=== PATIENT | female | born 1985 | race Caucasian/White ===

== ENCOUNTER → 2017-09-18 11:03 | Outpatient (CLI) | payer OTHER, SELFPAY ==
[2017-09-18 11:54] LABS: Hematocrit 33.4 % (37-47); Mean Corp Hgb Conc 32.9 g/gl (32-36); Mean Corpuscular Hgb 29.2 pg (27.0-32.0); Mean Corpuscular Volume 88.6 fL (81-99); Mean Platelet Vol. 10.7 fl (6.2-12.0); Platelet Count 154 K/mm3 (150-450); RBC Distribution Width CV 13.5 % (11.6-14.6); RBC Distribution Width SD 42.8 fl (35.1-43.9); Red Blood Count 3.77 M/mm3 (4.2-5.4); White Blood Count 6.8 K/mm3 (4.4-11.0)
[2017-09-18 11:56] LABS: Glucose Challenge Gest 1H 50g 89 mg/dL (70-140)
[2017-09-18 11:58] LABS: Scan Indicated on CBC? Y/N NO
== END ==
PROVIDERS: Visit Provider Obstetrics & Gynecology
DX: Z34.83 Encounter for supervision of other normal pregnancy, third trimester (principal)
CPT/HCPCS: 36415; 82950; 85027

== ENCOUNTER → 2017-11-12 16:40 | Outpatient (CLI) | payer OTHER, SELFPAY ==
[2017-11-12 18:25] LABS: Group B Strep DNA By PCR Negative (Negative); Internal Control PASS; Probe Check PASS; Specimen Processing Control PASS
== END ==
PROVIDERS: Visit Provider Obstetrics & Gynecology
DX: Z36.85 Encounter for antenatal screening for Streptococcus B (principal)
CPT/HCPCS: 87077; 87081; 87186; 87653

== ENCOUNTER 2017-12-04 05:30 | Inpatient (IN) | payer SELFPAY, OTHER ==
[2017-12-04] VITALS (19 sets, daily range): BP systolic 90–104; BP diastolic 43–64; PULSE 62–89; RESP 11–18; TEMP 36–37.1; O2SAT 82–100; BMI 27.5
--- NOTE | 2017-12-04 | FALS_PTH ---
PATIENT: GISELLE PEPPER LOC: [facility] U#:[id number] AGE/SX: 32/F ROOM: WP007 RE12/04/[address]: Dr. Gabriela Sanchez MD : [id number] BED: 1 DIS: 12/06/2017 SPEC #: [id number] RECD: 12/04/17 10:36 STATUS: LUCAS REMargaret #: [id number] CASEY: 12/04/17 00:[address]: Gabriela Sanchez DEPT: SURGICAL PATHOLOGY RECD BY: Yehuda Ngo ENTERED: 12/04/17 10:37 SP TYPE: FALL TUBES OTHR DR: No Primary Care Phys Tissues: Fallopian tube Procedures: Surgery Specimen Level II HEADER OPERATION: Bilateral partial salpingectomy, tubal ligation PRE-OP DIAGNOSIS: Sterilization request TISSUE SUBMITTED: Fallopian tubes MICROSCOPIC DIAGNOSIS Bilateral fallopian tubes, partial salpingectomy: Completely transected segments of bilateral fallopian tubes, no pathologic diagnosis. SJ:anitha 12/05/17 MICROSCOPIC DESCRIPTION Slides are reviewed. GROSS DESCRIPTION Received is one container labeled with the patient's name and designated bilateral fallopian tubes (right tube stitch). The specimen consists of two tubular pieces of beyer soft tissue with the right tube identified by a stitch and it is inked black and measures 2 cm in length and 0.8 cm in diameter. The left tube measures 1.4 cm in length and 0.7 cm in diameter. The entire specimen is submitted in one cassette. Both pieces will be sectioned at the time of embedding. / MARIE:anitha 12/04/17 TC:4 CPT: 59389 x2
[2017-12-04] MEDS: Lactated Ringers 1,000 ML 999 ML IV (06:05)
[2017-12-04 06:44] LABS: Hematocrit 32.5 % (37-47); Hemoglobin 10.8 g/dl (12.0-15.0); Mean Corp Hgb Conc 33.2 g/gl (32-36); Mean Corpuscular Hgb 28.4 pg (27.0-32.0); Mean Corpuscular Volume 85.5 fL (81-99); Mean Platelet Vol. 11.3 fl (6.2-12.0); Platelet Count 143 K/mm3 (150-450); RBC Distribution Width CV 13.1 % (11.6-14.6); RBC Distribution Width SD 39.6 fl (35.1-43.9); Scan Indicated on CBC? Y/N NO; White Blood Count 5.7 K/mm3 (4.4-11.0)
[2017-12-04 06:51] LABS: Partial Thromboplast Time 28.5 Seconds (24.1-36.2)
[2017-12-04] MEDS: Sodium Citrate/Citric Acid 30 ML UDC PO (06:57)
[2017-12-04] MEDS: Lactated Ringers 1,000 ML 150 ML IV (07:03)
--- NOTE | 2017-12-04 07:05 | PCM.DCCSEC ---
Discharge Diet: No Restrictions Discharge Activity: May not drive while taking narcotic pain medications., May Shower, May Take a Tub Bath Return to work on:: 01/19/18 May resume sexual activity in: 4-6 weeks Lifting Restrictions: 20 pounds Additional Activity Instructions:: Nothing in the vagina for 4-6 weeks. You may return to work/school in 6 weeks. Change Dressing in (Days):: 4 Remove Dressing in (days):: 4 Cleanse incision/area with: Soap & Water, Keep Dressing Clean & Dry Additional Instructions: If you experience any of the following, contact your healthcare provider. Bleeding that soaks a pad every hour for 2 hours Fever 100.4 or higher Unrelieved incision or abdominal pain Swelling, redness, discharge or bleeding from your incision Problems urinating (including inability to urinate or burning while urinating). Visual changes Severe headache Flu-like symptoms Pain or redness in one of both of your breasts Pain, warmth, tenderness or swelling in your legs, especially the calf area Frequent nausea and vomiting Symptoms of depression or anxiety If you experience any of the following, call 911 or go to the nearest Emergency Room. Chest pain Problems breathing Seizure activity Partial or complete paralysis of a body part, slurred speech, weakness or drooping of the face, or a sudden inability to walk or hold your balance Allergies/Adverse Reactions: Allergies No Known Allergies Allergy (Verified 12/04/17 05:50) Medications to take at Discharge Vits [Prenatabs FA] 1 tablet PO DAILY 07/26/15 Docusate Sodium [Colace] 100 mg PO BID PRN PRN #30 cap 12/04/17 Naproxen [Naprosyn] 250 - 500 mg PO TID PRN #30 tab 12/04/17 Oxycodone [Oxyir] 5 - 10 mg PO Q6H PRN PRN 7 Days #28 tablet 12/04/17 The following prescriptions were given: Oxycodone [Oxyir] 5 - 10 mg PO Q6H PRN PRN 7 Days #28 tablet PRN Reason: Mod-Severe Pain () Docusate Sodium [Colace] 100 mg PO BID PRN PRN #30 cap PRN Reason: Constipation Naproxen [Naprosyn] 250 - 500 mg PO TID PRN #30 tab PRN Reason: Mild-Mod Pain (-10/23) Follow-Up: Call to make an appointment with your doctor for an incision check in 1-2 weeks. You will also need a 6 week post- follow up appointment. Please Follow Up With: Jignesh Zabala MD - [phone] When: Call to make an appointment for an incision check in 2 weeks. Primary Care Physician: Care Physician,No Primary [Primary Care Provider] - Proposed Discharge Date: 12/06/17
--- NOTE | 2017-12-04 07:08 | DCINST_ITS ---
Discharge Diet: No Restrictions Discharge Activity: May not drive while taking narcotic pain medications., May Shower, May Take a Tub Bath Return to work on:: 01/19/18 May resume sexual activity in: 4-6 weeks Lifting Restrictions: 20 pounds Additional Activity Instructions:: Nothing in the vagina for 4-6 weeks. You may return to work/school in 6 weeks. Change Dressing in (Days):: 4 Remove Dressing in (days):: 4 Cleanse incision/area with: Soap & Water, Keep Dressing Clean & Dry Additional Instructions: If you experience any of the following, contact your healthcare provider. * Bleeding that soaks a pad every hour for 2 hours * Fever 100.4 or higher * Unrelieved incision or abdominal pain * Swelling, redness, discharge or bleeding from your incision * Problems urinating (including inability to urinate or burning while urinating) . * Visual changes * Severe headache * Flu-like symptoms * Pain or redness in one of both of your breasts * Pain, warmth, tenderness or swelling in your legs, especially the calf area * Frequent nausea and vomiting * Symptoms of depression or anxiety If you experience any of the following, call 911 or go to the nearest Emergency Room. * Chest pain * Problems breathing * Seizure activity * Partial or complete paralysis of a body part, slurred speech, weakness or drooping of the face, or a sudden inability to walk or hold your balance Allergies/Adverse Reactions: Allergies No Known Allergies Allergy (Verified 12/04/17 05:50) Medications to take at Discharge Vits [Prenatabs FA] 1 tablet PO DAILY 07/26/15 Docusate Sodium [Colace] 100 mg PO BID PRN PRN #30 cap 12/04/17 Naproxen [Naprosyn] 250 - 500 mg PO TID PRN #30 tab 12/04/17 Oxycodone [Oxyir] 5 - 10 mg PO Q6H PRN PRN 7 Days #28 tablet 12/04/17 The following prescriptions were given: Oxycodone [Oxyir] 5 - 10 mg PO Q6H PRN PRN 7 Days #28 tablet PRN Reason: Mod-Severe Pain () Docusate Sodium [Colace] 100 mg PO BID PRN PRN #30 cap PRN Reason: Constipation Naproxen [Naprosyn] 250 - 500 mg PO TID PRN #30 tab PRN Reason: Mild-Mod Pain (-10/23) Follow-Up: Call to make an appointment with your doctor for an incision check in 1-2 weeks. You will also need a 6 week post- follow up appointment. Please Follow Up With: Jignesh Zabala MD - [phone] When: Call to make an appointment for an incision check in 2 weeks. Primary Care Physician: Care Physician,No Primary [Primary Care Provider] - Proposed Discharge Date: 12/06/17
[2017-12-04] MEDS: Cefazolin 2 GM in 0.9% Normal Saline 100 ML IV (07:36)
[2017-12-04] MEDS: Oxytocin 30 units/NS 500 ml 30 UNITS/500 ML IV.SOLN 167 UNITS IV (07:49)
--- NOTE | 2017-12-04 08:23 | PCM.OP.BLANK ---
Operative Report Date of Procedure: 12/04/17 PROCEDURE: Repeat C section. Bilateral partial salpingectomy Preoperative diagnosis: 39 2/7 wk EGA Prior C section deliveries, planned repeat C section Sterilization request. Postop diagnosis: 39 2/7 wk EGA Prior C section deliveries, planned repeat C section Sterilization request. Anesthesia: Spinal Dr. Ghotra Surgeon: Gabriela Sanchez MD Church Secretary: LUCRECIA Candelario EBL 800 cc Complications: Incidental extension of skin incision occurred to patient's left side, with lateral stretch of peritoneum. Drains: Espinoza draining clear yellow Fluids: replacement LR Findings: At amniotomy, clear fluid was noted. Schmitt viable female in vertex presentation. Apgars 4/8/9, Clinical Study Manager called to delivery to attend. See resuscitation record. There were normal appearing fallopian tubes and ovaries bilaterally, and a normal appearing uterus with filmy adhesions of omentum and bladder to uterus, lower uterine segment. PATH: Bilateral fallopian tube segments, and routine cord blood gases sent to [facility] Pathology lab Narrative account: After the risks, benefits and alternatives of the procedure were reviewed with the patient, informed consent was obtained. The patient was taken to the Operating room with an IV running, and placed in a seated position on the operating table for placement of the spinal. Once the spinal had been administered, she was briefly frog-legged for Espinoza catheter placement, and then repositioned to dorsal supine position , and prepped and draped in the usual sterile fashion. Amanda's blood pressure was low and medications were given for this, and L tilt employed with resolution of symptoms (especially after delivery of ) Once the spinal was deemed adequate, a Pfannenstiel skin incision was created using the knife. The incision was carried down to the rectus fascia using the knife. The fascia was nicked in the midline. The fascial incision was extended bilaterally using curved Power scissors. The superior aspect of the fascial incision was grasped with Sanket clamps and tented up and the underlying rectus abdominal muscles were dissected free using Bovie cautery, blunt and sharp dissection. In a similar manner, the inferior aspect of the facial incision was grasped with Sanket clamps tented up and the underlying rectus abdominal muscles were dissected free. The rectus abdominis muscles were in the midline and the peritoneum was identified and entered by blunt dissection high in the incision. Using the shirt line operator's fingertips to guide dissection and Metzenbaum scissors the peritoneal incision was extended superiorly and then inferiorly The peritoneum was stretched laterally (and at this point the L rectus body tore and the skin incision extended towards the L hip). A bladder blade was inserted. The bladder was pushed down off the lower uterine segment as adhesions were taken down by Metzenbaum scissors. The uterine incision was then created using Metzenbaum scissors. The operators fingertips were used to extend the uterine incision by blunt dissection in a caudad- cephalad orientation . Clear fluid was noted at amniotomy. The vertex was then delivered atraumatically through the incision. The left shoulder was reduced and the baby was then delivered easily onto the abdomen. The OP and nares were bulb suctioned on the abdomen. The baby had good tone and was initially grasping at the suction tubing. No spontaneous cry was noted. The cord was clamped x two and cut. And the was handed off to the nurse awaiting delivery after briefly showing her to her parents. Clinical Study Manager was called to delivery then to assist with transitioning. The placenta was then delivered. The uterus was exteriorized and cleared of clots and debris . The uterine incision was repaired with 1 Vicryl in a running locked fashion. A second imbricating layer was then placed, using 1 Monocryl in running nonlocked fashion. Bovie cautery was used to treat any bleeding areas . Several horizontal mattress stitches were placed along the incision for hemostasis . Excellent hemostasis was noted. Attention was then turned to the bilateral partial salpingectomy The R fallopian tube was grasped as a relatively avascular midportion with a William clamp and tented up. A window was created in the mesosalpinx and the distal and proximal ends of the fallopian tube a the peritoneal window were free tied. A second free tie of 2-0 catgut was placed inferior o both other ligatures and a segment of the R fallopian tube was excised and set aside. T he fallopian tube stumps were Bovie cauterized for hemostasis . Excellent hemostasis was noted. I The partial salpingectomy was then performed in a similar manner the L fallopian tube. Excellent hemostasis was noted. At this point the uterus was returned to the abdominal cavity. The gutters were cleared of clots and debris and the incision at the uterus was inspected. Adequate hemostasis was noted. Dali was applied to the incision for continued hemostasis. The peritoneal edges and rectus abdominis muscles were reapproximated in the midline with vertical mattress stitches and figure of eight stitches of 1 Vicryl . Excellent hemostasis was noted at the subfascial space. The fascia was then closed in a running nonlocked fashion with a Stratofix suture. The Subcutaneous fatty tissue was Bovie cauterized as needed for hemostasis. Dali was liberally dusted at this layer to prevent seroma formation. This layer was then reapproximated with a single layer of running 3-0 Vicryl to eliminate space. The skin edges were closed in a Subcuticular stitch of 4-0 Monocryl. The incision was cleansed. Cavilon, Steristrips, and a telfa and tape dressing were then applied. The patient was then transferred to the recovery room bed in stable condition after tolerating the procedure well. Sponge, lap, needle and instrument counts correct times two. Medications given preop and intraoperatively included: Ancef 3 gm given food preparation kitchen aide to the operating room. The patient also received Pitocin given IV after cord clamp, and Toradol 30 mg IV times one, and Methergine 0.2 mg IM in R thigh as a prophylactic measure given macrosomia and initial uterine atony without hemorrhage. For a complete listing of medications given preop and intraoperatively, please see the anesthesia record.
--- NOTE | 2017-12-04 08:38 | OP.PCM_ITS ---
Operative Report Date of Procedure: 12/04/17 PROCEDURE: Repeat C section. Bilateral partial salpingectomy Preoperative diagnosis: 39 2/7 wk EGA Prior C section deliveries, planned repeat C section Sterilization request. Postop diagnosis: 39 2/7 wk EGA Prior C section deliveries, planned repeat C section Sterilization request. Anesthesia: Spinal Dr. Ghotra Surgeon: Gabriela Sanchez MD Medical Reviewer: LUCRECIA Candelario EBL 800 cc Complications: Incidental extension of skin incision occurred to patient's left side, with lateral stretch of peritoneum. Drains: Espinoza draining clear yellow Fluids: replacement LR Findings: At amniotomy, clear fluid was noted. Schmitt viable female in vertex presentation. Apgars 4/8/9, Rose Grader called to delivery to attend. See resuscitation record. There were normal appearing fallopian tubes and ovaries bilaterally, and a normal appearing uterus with filmy adhesions of omentum and bladder to uterus, lower uterine segment. PATH: Bilateral fallopian tube segments, and routine cord blood gases sent to [facility] Pathology lab Narrative account: After the risks, benefits and alternatives of the procedure were reviewed with the patient, informed consent was obtained. The patient was taken to the Operating room with an IV running, and placed in a seated position on the operating table for placement of the spinal. Once the spinal had been administered, she was briefly frog-legged for Espinoza catheter placement, and then repositioned to dorsal supine position , and prepped and draped in the usual sterile fashion. Amanda's blood pressure was low and medications were given for this, and L tilt employed with resolution of symptoms (especially after delivery of ) Once the spinal was deemed adequate, a Pfannenstiel skin incision was created using the knife. The incision was carried down to the rectus fascia using the knife. The fascia was nicked in the midline. The fascial incision was extended bilaterally using curved Power scissors. The superior aspect of the fascial incision was grasped with Sanket clamps and tented up and the underlying rectus abdominal muscles were dissected free using Bovie cautery, blunt and sharp dissection. In a similar manner, the inferior aspect of the facial incision was grasped with Sanket clamps tented up and the underlying rectus abdominal muscles were dissected free. The rectus abdominis muscles were in the midline and the peritoneum was identified and entered by blunt dissection high in the incision. Using the canteen operator's fingertips to guide dissection and Metzenbaum scissors the peritoneal incision was extended superiorly and then inferiorly The peritoneum was stretched laterally (and at this point the L rectus body tore and the skin incision extended towards the L hip). A bladder blade was inserted. The bladder was pushed down off the lower uterine segment as adhesions were taken down by Metzenbaum scissors. The uterine incision was then created using Metzenbaum scissors. The operators fingertips were used to extend the uterine incision by blunt dissection in a caudad- cephalad orientation . Clear fluid was noted at amniotomy. The vertex was then delivered atraumatically through the incision. The left shoulder was reduced and the baby was then delivered easily onto the abdomen. The OP and nares were bulb suctioned on the abdomen. The baby had good tone and was initially grasping at the suction tubing. No spontaneous cry was noted. The cord was clamped x two and cut. And the was handed off to the nurse awaiting delivery after briefly showing her to her parents. Rose Grader was called to delivery then to assist with transitioning. The placenta was then delivered. The uterus was exteriorized and cleared of clots and debris . The uterine incision was repaired with 1 Vicryl in a running locked fashion. A second imbricating layer was then placed, using 1 Monocryl in running nonlocked fashion. Bovie cautery was used to treat any bleeding areas . Several horizontal mattress stitches were placed along the incision for hemostasis . Excellent hemostasis was noted. Attention was then turned to the bilateral partial salpingectomy The R fallopian tube was grasped as a relatively avascular midportion with a William clamp and tented up. A window was created in the mesosalpinx and the distal and proximal ends of the fallopian tube a the peritoneal window were free tied. A second free tie of 2- 0 catgut was placed inferior o both other ligatures and a segment of the R fallopian tube was excised and set aside. T he fallopian tube stumps were Bovie cauterized for hemostasis . Excellent hemostasis was noted. I The partial salpingectomy was then performed in a similar manner the L fallopian tube. Excellent hemostasis was noted. At this point the uterus was returned to the abdominal cavity. The gutters were cleared of clots and debris and the incision at the uterus was inspected. Adequate hemostasis was noted. Dali was applied to the incision for continued hemostasis. The peritoneal edges and rectus abdominis muscles were reapproximated in the midline with vertical mattress stitches and figure of eight stitches of 1 Vicryl . Excellent hemostasis was noted at the subfascial space. The fascia was then closed in a running nonlocked fashion with a Stratofix suture. The Subcutaneous fatty tissue was Bovie cauterized as needed for hemostasis. Dali was liberally dusted at this layer to prevent seroma formation. This layer was then reapproximated with a single layer of running 3-0 Vicryl to eliminate space. The skin edges were closed in a Subcuticular stitch of 4- 0 Monocryl. The incision was cleansed. Cavilon, Steristrips, and a telfa and tape dressing were then applied. The patient was then transferred to the recovery room bed in stable condition after tolerating the procedure well. Sponge, lap, needle and instrument counts correct times two. Medications given preop and intraoperatively included: Ancef 3 gm given ad operations intern to the operating room. The patient also received Pitocin given IV after cord clamp, and Toradol 30 mg IV times one, and Methergine 0.2 mg IM in R thigh as a prophylactic measure given macrosomia and initial uterine atony without hemorrhage. For a complete listing of medications given preop and intraoperatively, please see the anesthesia record.
[2017-12-04] MEDS: Lactated Ringers 1,000 ML 100 ML IV ×2 (09:03→18:00)
--- NOTE | 2017-12-04 09:36 | NURSING ---
Warm blankets applied. tmp in room increased
[2017-12-04 09:41] LABS: Pathology Specimen OB SEE PATHOLOGY REPORT
[2017-12-04] MEDS: Ondansetron 4 MG/2 ML Vial IV (11:12)
[2017-12-04] MEDS: proMETHazine 25 MG/ML Syringe 12.5 MG IV (11:40)
[2017-12-04] MEDS: Ketorolac 30 MG/ML Syringe IV ×2 (14:05→20:18)
[2017-12-04] MEDS: Nalbuphine 10 MG/ML Ampul 5 MG IV (14:06)
--- NOTE | 2017-12-04 17:48 | NURSING ---
late entry- 1112- complaining of nausea and had small emesis. Zofran given.
--- NOTE | 2017-12-04 17:49 | NURSING ---
late entry-1140- continued to vomit x2 after Zofran. Phenergan given
[2017-12-05] VITALS (8 sets, daily range): BP systolic 84–91; BP diastolic 30–58; PULSE 70–90; RESP 16–20; TEMP 36.4–36.8; O2SAT 95–98
[2017-12-05] MEDS: Nalbuphine 10 MG/ML Ampul 5 MG IV ×2 (00:12→00:19)
[2017-12-05] MEDS: Ketorolac 30 MG/ML Syringe IV ×4 (02:38→20:07)
[2017-12-05 04:34] LABS: Hematocrit 27.2 % (37-47); Hemoglobin 8.8 g/dl (12.0-15.0); Mean Corp Hgb Conc 32.4 g/gl (32-36); Mean Corpuscular Hgb 27.7 pg (27.0-32.0); Mean Corpuscular Volume 85.5 fL (81-99); Mean Platelet Vol. 10.5 fl (6.2-12.0); Platelet Count 113 K/mm3 (150-450); RBC Distribution Width CV 13.5 % (11.6-14.6); RBC Distribution Width SD 42.2 fl (35.1-43.9); Red Blood Count 3.18 M/mm3 (4.2-5.4); Scan Indicated on CBC? Y/N NO
--- NOTE | 2017-12-05 07:44 | PCM.PN.OB ---
Subjective: POD#1 Repeat C/S and BPS Doing well. IV to S/L plans to bottle feed. Asking about formulas and normally uses [employer] brand. No concerns otherwise. N/V postop and this has passed. - Physical Exam General: Alert, Oriented x3, Cooperative, No apparent distress HEENT: Atraumatic Neck: Supple Abdomen: Soft - Firm and tender c/w postop status, at umbilicus - 1 cm. Skin: Incision - Cover dressing removed. Incision CDI. Steristrips intact Neurological: Cranial nerves II-XII grossly intact Psych/Mental Status: Normal Affect Vital Signs Temp Pulse Resp BP Pulse Ox 97.5 F L 74 16 84/43 L 98 12/05/17 04:07 12/05/17 05:53 12/05/17 05:53 12/05/17 04:19 12/05/17 05:53 Oxygen Delivery Method Room Air Weight: 66.134 kg Body Mass Index (BMI) 27.5 Intake and Output for Last 24 Hours 12/03/12/04/12/05/17 23:59 23:59 23:59 Intake Total 4375 / 4375 Output Total 2100 / 2100 1815 / 1815 Balance 2275 / 2275 -1815 / -1815 Laboratory Tests Past 24 Hrs //18 12/05/17 06:10 04:15 WBC 7.0 RBC 3.18 L Hgb 8.8 L Hct 27.2 L MCV 85.5 MCH 27.7 MCHC 32.4 RDW 13.5 RDW Differential 42.2 Plt Count 113 L MPV 10.5 Blood Type A POSITIVE Antibody Screen NEGATIVE Medical Necessity - Tobacco Use Smoking Status: Never smoker Assessment/Plan POD#1 Repeat C/S and BPS Stable postop. Inc diet and activity as tolerated. D/C eng for voiding trial. IV to S/L. Begin po meds. Postop acute blood loss on chronic anemia. VSS -- Ferrous sulfate bid Continue care. Possible dischg home POD#2
[2017-12-05] MEDS: 0.9% Saline Lock 10 ML Syringe IV ×3 (07:59→20:08)
[2017-12-05] MEDS: Ferrous Sulfate 325 MG Tablet PO ×2 (07:59→17:26)
[2017-12-05] MEDS: Prenatal Vits Tablet 1 TABLET PO (10:09)
[2017-12-05] MEDS: Senna/Docusate Sodium 1 Tablet PO (10:09)
[2017-12-05] MEDS: Acetaminophen 500 MG Tablet 1000 MG PO (12:03)
[2017-12-06] MEDS: Ketorolac 30 MG/ML Syringe IV ×2 (02:06→08:17)
[2017-12-06] MEDS: 0.9% Saline Lock 10 ML Syringe IV (02:07)
[2017-12-06 02:15] VITALS: BP 95/55; PULSE 94; RESP 18; TEMP 36.6
--- NOTE | 2017-12-06 06:50 | PCM.PN.OB ---
Subjective: No complaints. Pain is manageable. She has a good appetite and tolerates a regular diet. Denies heavy lochia. Objective: AVSS - Physical Exam General: Alert, Oriented x3, Cooperative, No apparent distress HEENT: Atraumatic, PERRLA, EOMI, Normocephalic Lungs: Clear to auscultation, Normal air movement Cardiovascular: Regular rate, Regular Rhythm, Normal S1, Normal S2, No murmurs Abdomen: Bowel Sounds Present, Soft, Non Tender, - - Fundus firm and nontender - incision c/d/i with steristrips Extremities: No edema, No Calf Tenderness Neurological: Neuro grossly intact Psych/Mental Status: Normal Affect, Appropriate, Alert and oriented to time, place, person, mood and affect Vital Signs Temp Pulse Resp BP Pulse Ox 97.8 F 94 18 95/55 L 97 12/06/17 02:15 12/06/17 02:15 12/06/17 02:15 12/06/17 02:15 12/05/17 20:00 Oxygen Delivery Method Room Air Weight: 66.134 kg Body Mass Index (BMI) 27.5 Intake and Output for Last 24 Hours 12/04/17 12/05/17 12/06/17 23:59 23:59 23:59 Intake Total 4375 / 4375 250 / 250 Output Total 2100 / 2100 3165 / 3165 Balance 2275 / 2275 -2915 / -2915 Medical Necessity - Tobacco Use Smoking Status: Never smoker Assessment/Plan 32yo POD#2 s/p RLTCS with bilateral tubal ligation -Rh positive -Bottlefeeding -Plan for d/c home later today
--- NOTE | 2017-12-06 07:02 | PCM.DC.SUM ---
Discharge Date and Diagnosis - Problem List Patient Problems: Active and Suspected Problems H/O section (Acute) Date of Admission: 12/04/17 Date of Discharge: 12/06/17 Hospital Course and Treatment Operations: - - section, bilateral tubal ligation Summary of Care Provided: The patient is a 32 year old F 7 para 3033 admitted at 39 2/7 weeks gestation for scheduled repeat section and sterilization. She underwent an uncomplicated section with bilateral tubal ligation. Her post-operative course was uncomplicated and she was discharged to home on post-operative day #2. Discharge Diet: No Restrictions Discharge Activity: May not drive while taking narcotic pain medications., May Shower, May Take a Tub Bath Return to work on:: 01/19/18 May resume sexual activity in: 4-6 weeks Additional Activity Instructions:: Nothing in the vagina for 4-6 weeks. You may return to work/school in 6 weeks. Change Dressing in (Days):: 4 Remove Dressing in (days):: 4 Cleanse incision/area with: Soap & Water, Keep Dressing Clean & Dry Home Medications: Medications to take at Discharge Vits [Prenatabs FA] 1 tablet PO DAILY 07/26/15 Docusate Sodium [Colace] 100 mg PO BID PRN PRN #30 cap 12/04/17 Naproxen [Naprosyn] 250 - 500 mg PO TID PRN #30 tab 12/04/17 Oxycodone [Oxyir] 5 - 10 mg PO Q6H PRN PRN 7 Days #28 tablet 12/04/17 Ferrous Sulfate 325 mg PO BIDCM #60 tab 12/06/17 Following Prescrptions Were Given to Patient: Oxycodone [Oxyir] 5 - 10 mg PO Q6H PRN PRN 7 Days #28 tablet PRN Reason: Mod-Severe Pain (-03/25) Docusate Sodium [Colace] 100 mg PO BID PRN PRN #30 cap PRN Reason: Constipation Ferrous Sulfate 325 mg PO BIDCM #60 tab Naproxen [Naprosyn] 250 - 500 mg PO TID PRN #30 tab PRN Reason: Mild-Mod Pain (1-10/23) Primary Care Physician: Care Physician,No Primary [Primary Care Provider] - Please Follow Up With: Jignesh Zabala MD - [phone] When: Call to make an appointment for an incision check in 2 weeks. Medical Necessity - Tobacco Use Smoking Status: Never smoker Meaningful Use Info Meaningful Use Diagnoses (Choose all that apply): None applicable
--- NOTE | 2017-12-06 07:07 | DS.PCM_ITS ---
Discharge Date and Diagnosis - Problem List Patient Problems: Active and Suspected Problems H/O section (Acute) Date of Admission: 12/04/17 Date of Discharge: 12/06/17 Hospital Course and Treatment Operations: - - section, bilateral tubal ligation Summary of Care Provided: The patient is a 32 year old F 7 para 3033 admitted at 39 2/7 weeks gestation for scheduled repeat section and sterilization. She underwent an uncomplicated section with bilateral tubal ligation. Her post-operative course was uncomplicated and she was discharged to home on post- operative day #2. Discharge Diet: No Restrictions Discharge Activity: May not drive while taking narcotic pain medications., May Shower, May Take a Tub Bath Return to work on:: 01/19/18 May resume sexual activity in: 4-6 weeks Additional Activity Instructions:: Nothing in the vagina for 4-6 weeks. You may return to work/school in 6 weeks. Change Dressing in (Days):: 4 Remove Dressing in (days):: 4 Cleanse incision/area with: Soap & Water, Keep Dressing Clean & Dry Home Medications: Medications to take at Discharge Vits [Prenatabs FA] 1 tablet PO DAILY 07/26/15 Docusate Sodium [Colace] 100 mg PO BID PRN PRN #30 cap 12/04/17 Naproxen [Naprosyn] 250 - 500 mg PO TID PRN #30 tab 12/04/17 Oxycodone [Oxyir] 5 - 10 mg PO Q6H PRN PRN 7 Days #28 tablet 12/04/17 Ferrous Sulfate 325 mg PO BIDCM #60 tab 12/06/17 Following Prescrptions Were Given to Patient: Oxycodone [Oxyir] 5 - 10 mg PO Q6H PRN PRN 7 Days #28 tablet PRN Reason: Mod-Severe Pain (-03/25) Docusate Sodium [Colace] 100 mg PO BID PRN PRN #30 cap PRN Reason: Constipation Ferrous Sulfate 325 mg PO BIDCM #60 tab Naproxen [Naprosyn] 250 - 500 mg PO TID PRN #30 tab PRN Reason: Mild-Mod Pain (1-10/23) Primary Care Physician: Care Physician,No Primary [Primary Care Provider] - Please Follow Up With: Jignesh Zabala MD - [phone] When: Call to make an appointment for an incision check in 2 weeks. Medical Necessity - Tobacco Use Smoking Status: Never smoker Meaningful Use Info Meaningful Use Diagnoses (Choose all that apply): None applicable
[2017-12-06 08:00] VITALS: BP 96/60; PULSE 81; RESP 16; TEMP 36.7; O2SAT 98
[2017-12-06] MEDS: Ferrous Sulfate 325 MG Tablet PO (08:16)
[2017-12-06] MEDS: Prenatal Vits Tablet 1 TABLET PO (08:17)
[2017-12-06 12:00] VITALS: BP 120/80; PULSE 79; RESP 16; TEMP 36.7; O2SAT 99
== END 2017-12-06 12:10 | disposition home or self-care (01) | DRG 765 ==
PROVIDERS: Obstetrics & Gynecology; Admitting Provider Obstetrics & Gynecology; Visit Provider Obstetrics & Gynecology
PROC: (CPT 59514; principal; 2017-12-04 07:15)
DX: O99.02 Anemia complicating childbirth (principal); D62 Acute posthemorrhagic anemia; Z3A.39 39 weeks gestation of pregnancy; Z37.0 Single live birth
CPT/HCPCS: 85027; 85610; 85730; 86850; 86900; 88302; 99218; J7120; A4216; G0378; J2405